=== PATIENT | male | born 2000 | race Caucasian/White ===

== ENCOUNTER 2020-07-07 22:45 | Emergency (ER) | payer OTHER ==
[~2020-07-07] VITALS: Ht 182.9 cm; Wt 86.4 kg
[2020-07-08] MEDS ORDERED: IBUPROFEN 600MG TAB PO ONE
[2020-07-08] MEDS ORDERED: methocarbamoL 500 MG TAB PO ONE
[2020-07-08] MEDS ORDERED: ROBA750T4 PO (00:06)
[2020-07-08] MEDS ORDERED: IBUP80TA PO (00:06)
[2020-07-08 00:50] VITALS: BP 134/71
== END 2020-07-08 00:53 | disposition home or self-care (01) ==
LOC: M ED 22:45
DX: S76.111A Strain of right quadriceps muscle, fascia and tendon, initial encounter (principal); X50.9XXA Other and unspecified overexertion or strenuous movements or postures, initial encounter; Y92.830 Public park as the place of occurrence of the external cause

== ENCOUNTER 2024-03-01 19:44 | Emergency (ER) | payer OTHER ==
[~2024-03-01] VITALS: Ht 182.9 cm; Wt 101.0 kg
[~2024-03-01 19:44] MED LIST: IBUP80TA PO; ROBA750T4 PO
[2024-03-01 20:43] LABS: CARBOXYHEMOGLOBIN 1.1 % (0.0-1.5); VENOUS BASE EXCESS -0.7 (-2.0-2.0); VENOUS HCO3 24.3 MMOL/L (23.0-27.0); VENOUS O2 SATURATION 88.2 % (60.0-80.0); VENOUS PARTIAL PRESSURE CO2 41.5 mmHg (38.0-50.0); VENOUS PARTIAL PRESSURE O2 55.4 mmHg (30.0-50.0); VENOUS PH 7.386 UNITS (7.330-7.430); VENOUS STANDARD HCO3 23.7 MMOL/L; VENOUS TOTAL CO2 25.6 MMOL/L (24.0-28.0)
[2024-03-01 20:50] LABS: HEMATOCRIT 42.4 % (42.0-52.0); HEMOGLOBIN 14.8 g/dl (13.5-17.5); MEAN CORPUSCULAR HEMOGLOBIN 29.6 pg (27.0-33.0); MEAN CORPUSCULAR HGB CONC 34.9 g/dl (32.0-36.5); MEAN CORPUSCULAR VOLUME 84.8 fl (80.0-96.0); PLATELET COUNT, AUTOMATED 209 10^3/uL (150-450); WHITE BLOOD COUNT 7.5 10^3/uL (4.0-10.0)
[2024-03-01 21:01] LABS: APPEARANCE, URINE CLEAR (CLEAR); BACTERIA, URINE AUTO NEGATIVE (NEGATIVE); BILIRUBIN, URINE AUTO NEGATIVE (NEGATIVE); BLOOD, URINE BLOOD NEGATIVE (NEGATIVE); COLOR, URINE YELLOW (YELLOW); GLUCOSE, URINE (UA) AUTO NEGATIVE (NEGATIVE); KETONE, URINE AUTO NEGATIVE (NEGATIVE); LEUKOCYTE ESTERASE, URINE AUTO NEGATIVE (NEGATIVE); MUCUS, URINE MODERATE (NEGATIVE); NITRITE, URINE AUTO NEGATIVE (NEGATIVE); PROTEIN, URINE AUTO NEGATIVE (NEGATIVE); RBC, URINE AUTO 0 /HPF (0-3); SPECIFIC GRAVITY URINE AUTO 1.023 (1.002-1.035); SQUAMOUS EPITHELIAL CELL UR AU 0 /HPF (0-6); WBC, URINE AUTO 0 /HPF (0-3)
[2024-03-01 21:14] LABS: ALBUMIN 4.7 G/DL (3.2-5.2); ALKALINE PHOSPHATASE 59 U/L (46-116); ALT/SGPT 22 U/L (7.0-40); AST/SGOT 13 U/L (<34); BILIRUBIN,DIRECT 0.3 MG/DL (<0.4); BILIRUBIN,TOTAL 0.7 MG/DL (0.3-1.2); BLOOD UREA NITROGEN 12 MG/DL (9-23); CARBON DIOXIDE LEVEL 28 MMOL/L (20-31); CHLORIDE LEVEL 109 MMOL/L (98-107); CREATININE FOR GFR 0.82 MG/DL (0.70-1.30); GLOMERULAR FILTRATION RATE > 60.0 (>60); GLUCOSE, FASTING 114 MG/DL (60-100); POTASSIUM SERUM 3.5 MMOL/L (3.5-5.1); SODIUM LEVEL 141 MMOL/L (136-145); TOTAL PROTEIN 7.3 G/DL (5.7-8.2)
[2024-03-02 00:04] VITALS: BP 122/77; TEMP 98; O2SAT 98
== END 2024-03-02 00:07 | disposition home or self-care (01) ==
LOC: M ED 19:44
DX: R11.2 Nausea with vomiting, unspecified (principal); T52.0X1A Toxic effect of petroleum products, accidental (unintentional), initial encounter; Z79.1 Long term (current) use of non-steroidal anti-inflammatories (NSAID); Z79.899 Other long term (current) drug therapy

== ENCOUNTER 2024-07-31 13:44 | Emergency (ER) | payer OTHER ==
[~2024-07-31] VITALS: Ht 182.9 cm; Wt 104.2 kg
[2024-07-31 14:49] LABS: BASO # 0.1 10^3/uL (0.0-0.2); BASO % 0.8 % (0.0-1.0); EOS # 0.1 10^3/uL (0.0-0.5); EOS % 2.4 % (0.0-3.0); HEMATOCRIT 42.3 % (42.0-52.0); HEMOGLOBIN 14.5 g/dl (13.5-17.5); LYMPH # 1.8 10^3/uL (1.5-5.0); LYMPH % 29.7 % (24.0-44.0); MEAN CORPUSCULAR HEMOGLOBIN 29.1 pg (27.0-33.0); MEAN CORPUSCULAR HGB CONC 34.3 g/dl (32.0-36.5); MEAN CORPUSCULAR VOLUME 84.8 fl (80.0-96.0); MONO # 0.6 10^3/uL (0.0-0.8); MONO % 10.4 % (2.0-8.0); NEUTROPHILS # 3.4 10^3/uL (1.5-8.5); NEUTROPHILS % 56.4 % (36.0-66.0); PLATELET COUNT, AUTOMATED 237 10^3/uL (150-450); RED BLOOD COUNT 4.99 10^6/uL (4.30-6.10)
[2024-07-31 15:14] LABS: ALBUMIN 4.3 G/DL (3.2-5.2); ALKALINE PHOSPHATASE 54 U/L (40-129); ALT/SGPT 28 U/L (7.0-40); AST/SGOT 21 U/L (<34); BILIRUBIN,TOTAL 0.5 MG/DL (0.3-1.2); BLOOD UREA NITROGEN 19 MG/DL (9-23); CALCIUM LEVEL 9.3 MG/DL (8.5-10.1); CARBON DIOXIDE LEVEL 27 MMOL/L (20-31); CHLORIDE LEVEL 105 MMOL/L (98-107); CREATININE FOR GFR 0.83 MG/DL (0.70-1.30); GLOMERULAR FILTRATION RATE > 60.0 (>60); GLUCOSE, FASTING 89 MG/DL (60-100); POTASSIUM SERUM 4.2 MMOL/L (3.5-5.1); SODIUM LEVEL 141 MMOL/L (136-145); TOTAL PROTEIN 7.1 G/DL (5.7-8.2)
[2024-07-31] MEDS ORDERED: CEPH500C PO (20:53)
[2024-07-31 21:21] VITALS: BP 141/62; TEMP 98.3; O2SAT 98
[2024-07-31] MEDS: CEPHALEXIN 500 MG CAP PO ONE (21:24)
== END 2024-07-31 21:28 | disposition home or self-care (01) ==
LOC: EDBD 13:44 → M ED 13:44
DX: L03.012 Cellulitis of left finger (principal); K62.5 Hemorrhage of anus and rectum; F10.10 Alcohol abuse, uncomplicated; Z79.1 Long term (current) use of non-steroidal anti-inflammatories (NSAID); Z79.2 Long term (current) use of antibiotics; Z79.899 Other long term (current) drug therapy